=== PATIENT | female | born 1965 | race Caucasian/White ===

== ENCOUNTER 2018-11-18 07:03 | Day surgery (SDC) | payer BC, OTHER ==
[2018-11-18] MEDS ORDERED: MIDAZOLAM 1 MG/ML 2 ML INJ ×2 (12:40)
[2018-11-18] MEDS ORDERED: FENTAnyl 50 MCG/ML VIAL (12:40)
== END 2018-11-18 10:24 | disposition home or self-care (01) ==
LOC: GIL 07:03
DX: K51.90 Ulcerative colitis, unspecified, without complications (principal); K64.8 Other hemorrhoids; K29.60 Other gastritis without bleeding
CPT/HCPCS: 43239; 88305; 88312